=== PATIENT | male | born 1990 | race American Indian/Alaskan Native ===

== ENCOUNTER 2022-05-12 13:47 | Emergency (ER) | payer SELFPAY ==
[2022-05-12 14:00] VITALS: BP 146/100
== END 2022-05-12 23:32 | disposition left against medical advice (07) ==
LOC: ED 13:47
DX: J06.9 Acute upper respiratory infection, unspecified (principal); Z53.21 Procedure and treatment not carried out due to patient leaving prior to being seen by health care provider

== ENCOUNTER 2022-05-25 02:58 | Emergency (ER) | payer SELFPAY ==
[2022-05-25 07:24] LABS: Basophils # (Auto) 0.1 K/mm3 (0.0-0.1); Basophils % (Auto) 0.9 % (0.0-1.8); Eosinophils # (Auto) 0.3 K/mm3 (0.0-0.4); Eosinophils % (Auto) 2.3 % (0.0-4.3); Hematocrit 49.8 % (35.5-45.6); Hemoglobin 16.8 gm/dl (11.8-15.2); Lymphocytes # (Auto) 3.4 K/mm3 (1.2-5.4); Lymphocytes % (Auto) 28.8 % (13.4-35.0); Mean Corpuscular HGB Conc 34 % (32-34); Mean Corpuscular Volume 95 fl (84-94); Monocytes # (Auto) 0.8 K/mm3 (0.0-0.8); Monocytes % (Auto) 6.8 % (0.0-7.3); Platelet Count 412 K/mm3 (140-440); Red Blood Count 5.22 M/mm3 (3.65-5.03); Red Cell Distribution Width 14.6 % (13.2-15.2)
[2022-05-25 07:44] LABS: BUN/Creatinine Ratio 5; Blood Urea Nitrogen 5 mg/dL (9-20); Hemolysis Index 16
--- NOTE | 2022-05-25 07:58 | XRay Report ---
CHEST 2 VIEWS INDICATION / CLINICAL INFORMATION: cough and aches. COMPARISON: None available. FINDINGS: SUPPORT DEVICES: None. HEART / MEDIASTINUM: No significant abnormality. LUNGS / PLEURA: Mild bronchial wall thickening is identified in the perihilar regions extending to th e lower lobes. This may represent viral infection or bronchitis. No focal infiltrate, pleural effusio n or pneumothorax. ADDITIONAL FINDINGS: No significant additional findings. IMPRESSION: 1. Findings suggestive of viral infection or bronchitis as described. No focal infiltrate or effusion . Signer Name: Vern Neri Jr, MD Signed: 05/25/2022 7:54 AM Workstation Name: [id number]
[2022-05-25] MEDS ORDERED: predniSONE 20 MG TAB PO ONE (09:29)
[2022-05-25] MEDS ORDERED: KETOROLAC 10 MG TAB PO ONE (09:29)
[2022-05-25 09:40] VITALS: BP 123/89
--- NOTE | 2022-05-25 10:03 | Emergency Department Report ---
ED General Adult HPI - General Chief complaint: Pain General Stated complaint: CHILLS, ACHES, RT BREAST LUMP Time Seen by Provider: 05/25/22 09:15 Source: patient Mode of arrival: Ambulatory Limitations: No Limitations - History of Present Illness Initial comments: 32-year-old black male with no past medical history presents to the emergency department for evaluation of few day history of body aches, cough, headache. He states that he has had some intermittent shortness of breath, but denies fever, nausea, vomiting, and abdominal pain. He states that he has not taken any medication for his symptoms. He also complains of a knot on his right wrist. He states that night has been there for several years but it seems to be a lot bigger than it was. He states that that is not painful. MD Complaint: Body aches, cough, intermittent shortness of breath -: Gradual, days(s) (2-3) Location: head, back, left, right, upper extremity, lower extremity Radiation: non-radiation Severity scale (0 -10): 6 Quality: aching Consistency: constant Associated Symptoms: denies: confusion, chest pain, cough, diaphoresis, fever/chills, headaches, loss of appetite, malaise, nausea/vomiting, rash, seizure, shortness of breath, syncope, weakness Treatments Prior to Arrival: none - Related Data Previous Rx's Medication Instructions Recorded Last Taken Type Prednisone [predniSONE 10 mg 10 mg PO .TAPER #1 pack 05/25/22 Unknown Rx (6-Day Pack, 21 Tabs)] guaiFENesin/CODEINE [Robitussin AC] 10 ml PO TID PRN #120 ml 05/25/22 Unknown Rx Allergies Allergy/AdvReac Type Severity Reaction Status Date / Time No Known Allergies Allergy Verified 05/12/22 14:00 ED Review of Systems ROS: Stated complaint: CHILLS, ACHES, RT BREAST LUMP Other details as noted in HPI Comment: All other systems reviewed and negative Constitutional: denies: chills, fever, malaise, weakness Eyes: denies: eye pain, eye discharge, vision change ENT: denies: ear pain, congestion Respiratory: shortness of breath. denies: SOB with exertion, SOB at rest, wheezing Cardiovascular: denies: chest pain, palpitations, dyspnea on exertion, orthopnea, edema, syncope, paroxysmal nocturnal dyspnea Gastrointestinal: denies: abdominal pain, nausea, vomiting, diarrhea, hematemesis, melena, hematochezia Genitourinary: denies: dysuria Musculoskeletal: myalgia. denies: back pain Skin: denies: rash Neurological: denies: as per HPI, headache, weakness ED Past Medical Hx - Past Medical History Previous Medical History?: No - Surgical History Past Surgical History?: No - Social History Smoking Status: Current Every Day Smoker Substance Use Type: Marijuana - Medications Home Medications: Home Medications Medication Instructions Recorded Confirmed Last Taken Type Prednisone [predniSONE 10 mg 10 mg PO .TAPER #1 pack 05/25/22 Unknown Rx (6-Day Pack, 21 Tabs)] guaiFENesin/CODEINE [Robitussin AC] 10 ml PO TID PRN #120 ml 05/25/22 Unknown Rx ED Physical Exam - General Limitations: No Limitations General appearance: alert, in no apparent distress - Head Head exam: Present: atraumatic, normocephalic - Eye Eye exam: Present: normal appearance. Absent: conjunctival injection - ENT ENT exam: Absent: normal exam (Bilateral nasal mucosal edema), normal orophraynx (Erythema noted to posterior oropharynx) - Neck Neck exam: Present: normal inspection, full ROM. Absent: tenderness, lymphadenopathy - Respiratory Respiratory exam: Present: normal lung sounds bilaterally. Absent: respiratory distress, wheezes, rales, rhonchi, stridor, chest wall tenderness - Cardiovascular Cardiovascular Exam: Present: tachycardia, normal heart sounds - GI/Abdominal GI/Abdominal exam: Present: soft, normal bowel sounds. Absent: distended, tenderness, guarding, rebound, rigid - Extremities Exam Extremities exam: Absent: normal inspection - Expanded Upper Extremity Exam Right Forearm Wrist exam: Present: full ROM. Absent: normal inspection (Circular not 2 cm in diameter noted to dorsum of wrist), tenderness, abrasion, ecchymosis, erythema Hand L/R Back: 1 - Knot noted to the area without erythema tenderness or drainage noted Vascular: Present: normal capillary refill, radial pulse. Absent: vascular compromise, Pallo - Back Exam Back exam: Present: normal inspection. Absent: tenderness, CVA tenderness (R), CVA tenderness (L), vertebral tenderness - Neurological Exam Neurological exam: Present: alert, oriented X3, normal gait - Psychiatric Psychiatric exam: Present: normal affect, normal mood - Skin Skin exam: Present: warm, dry, intact, normal color ED Course Vital Signs 05/25/22 05/25/22 03:03 09:38 Temperature 98.6 F 97.8 F Pulse Rate 101 H 77 Respiratory 5 L 17 Rate Blood Pressure 137/90 Blood Pressure 123/89 [Right] O2 Sat by Pulse 93 97 Oximetry ED Medical Decision Making - Lab Data Result diagrams: 05/25/22 07:14 05/25/22 07:14 - Radiology Data Radiology results: report reviewed, image reviewed Chest x-ray: FINDINGS: SUPPORT DEVICES: None. HEART / MEDIASTINUM: No significant abnormality. LUNGS / PLEURA: Mild bronchial wall thickening is identified in the perihilar regions extending to the lower lobes. This may represent viral infection or bronchitis. No focal infiltrate, pleural effusion or pneumothorax. ADDITIONAL FINDINGS: No significant additional findings. IMPRESSION: 1. Findings suggestive of viral infection or bronchitis as described. No focal infiltrate or effusion. - Medical Decision Making 32-year-old black male with no past medical history presents to the emergency department for evaluation of few day history of body aches, cough, headache. He states that he has had some intermittent shortness of breath, but denies fever, nausea, vomiting, and abdominal pain. He states that he has not taken any medication for his symptoms. He also complains of a knot on his right wrist. He states that night has been there for several years but it seems to be a lot b igger than it was. He states that that is not painful. Physical exam unremarkable. Chest x-ray negative for pneumonia but is suggestive of viral infection. Patient will be treated with steroid Dosepak and Robitussin-AC to use as directed at home. He is advised to take medications as prescribed and follow-up with his primary care provider if no improvement or worsening symptoms. He is advised to return to the emergency department as needed. He verbalizes understanding of and agreement with plan of care. Critical care attestation.: If time is entered above; I have spent that time in minutes in the direct care of this critically ill patient, excluding procedure time. ED Disposition Clinical Impression: Viral syndrome, Ganglion cyst of dorsum of right wrist Disposition: 01 HOME / SELF CARE / HOMELESS Is pt being admited?: No Does the pt Need Aspirin: No Condition: Stable Instructions: Viral Illness, Adult, Ganglion Cyst Additional Instructions: Take medications as prescribed. Increase intake of noncaffeinated fluids. Follow-up with your primary care provider for further evaluation and management. Return to the emergency department as needed. Prescriptions: Prednisone [predniSONE 10 mg (6-Day Pack, 21 Tabs)] 10 mg PO .TAPER #1 pack guaiFENesin/CODEINE [Robitussin AC] 10 ml PO TID PRN #120 ml PRN Reason: Cough Referrals: TONI ORELLANA MD [Staff Physician] - 3-5 Days Forms: Work/School Release Form(ED) Time of Disposition: 10:02
== END 2022-05-25 10:57 | disposition home or self-care (01) ==
LOC: ED 02:58
DX: B34.9 Viral infection, unspecified (principal); M67.431 Ganglion, right wrist; F17.200 Nicotine dependence, unspecified, uncomplicated; Z79.899 Other long term (current) drug therapy
CPT/HCPCS: 36415; 71046; 80048; 85025; 99284

== ENCOUNTER 2022-07-08 22:27 | Emergency (ER) | payer SELFPAY ==
[2022-07-09] MEDS ORDERED: ACETAMINOPHEN 500 MG TAB PO ONE (04:23)
[2022-07-09] MEDS ORDERED: IBUPROFEN 600 MG TAB PO ONE (04:23)
[2022-07-09] MEDS ORDERED: CYCLOBENZAPRINE 10 MG TAB PO ONE (04:23)
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
[2022-07-09 07:16] VITALS: BP 136/85
--- NOTE | 2022-07-13 09:06 | XRay Report ---
Lumbar spine, 2 views HISTORY: Pain COMPARISON: None FINDINGS: No acute fracture or subluxation. No significant spondylosis. Soft tissues are unremarkable . IMPRESSION: No acute findings. Signer Name: Janes Ruelas MD Signed: 07/09/2022 5:01 AM Workstation Name: [id number]
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
== END 2022-07-09 08:06 | disposition home or self-care (01) ==
LOC: ED 22:27
DX: S39.012A Strain of muscle, fascia and tendon of lower back, initial encounter (principal); M62.830 Muscle spasm of back; F17.200 Nicotine dependence, unspecified, uncomplicated; F12.90 Cannabis use, unspecified, uncomplicated; Y04.8XXA Assault by other bodily force, initial encounter; X58.XXXA Exposure to other specified factors, initial encounter; Y93.89 Activity, other specified; Y92.89 Other specified places as the place of occurrence of the external cause; Y99.8 Other external cause status
CPT/HCPCS: 72100; 99282; 99283